=== PATIENT | female | born 1985 | race Caucasian/White ===

== ENCOUNTER 2016-05-01 10:40 | Emergency (ER) | payer SELFPAY ==
[2016-05-01] MEDS ORDERED: IBUPROFEN 800 MG TABLET PO ONE (11:02)
--- NOTE | 2016-05-01 11:02 | ER Document Report ---
ED Medical Screen (RME) - General Stated Complaint: BACK/LEG PAIN Time seen by provider: 11:00 Mode of Arrival: Ambulatory Information source: Patient Notes: 30-year-old female presents to ED for lower back pain in his pain down both legs. States she's had back pain for 2 or 3 days. States she's had leg pain for about a week but she did not have a day off. Last menstrual period 2016 - Related Data Allergies/Adverse Reactions: Sulfa (Sulfonamide Antibiotics) Allergy (Verified 05/01/16 11:00)
--- NOTE | 2016-05-01 11:45 | ER Document Report ---
ED General - General Chief Complaint: Low Back Pain Stated Complaint: BACK/LEG PAIN Time seen by provider: 11:40 Mode of Arrival: Ambulatory Notes: This is a 30-year-old female with a history of anxiety that presents today with lumbar back pain and bilateral leg pain and left arm pain. She states that both her legs started to be painful a week ago, her lumbar back started 5 days ago, and her left arm pain started this morning at 0800. She describes her leg pain as sharp constant 9 out of 10 and worse with walking. Pain travels from the lumbar back behind thighs all the way down to toes bilaterally. She describes back pain is sharp 10 out of 10 worse with any movement. She describes the left arm pain as numbness constant 9 out of 10. Pain starts in the shoulder and radiates to fingertips. Denies nausea vomiting fever chills or any injuries. Only treatment has been Motrin and ibuprofen which helps minimally. Denies bowel or bladder dysfunction. Denies vaginal discharge or odor and dyspareunia. Last menstrual period was 04/25/2016. TRAVEL OUTSIDE OF THE [place] IN LAST 30 DAYS: No - Related Data Allergies/Adverse Reactions: Sulfa (Sulfonamide Antibiotics) Allergy (Verified 05/01/16 11:00) Past Medical History - General Information source: Patient - Social History Smoking Status: Current Every Day Smoker - Smokes half a pack per day for the last 6 years Chew tobacco use (# tins/day): No Frequency of alcohol use: None Drug Abuse: None Family History: Reviewed & Not Pertinent Patient has suicidal ideation: No Patient has homicidal ideation: No Renal/ Medical History: Denies: Hx Peritoneal Dialysis Review of Systems - Review of Systems Constitutional: denies: Chills, Fever EENT: No symptoms reported Cardiovascular: No symptoms reported Respiratory: No symptoms reported Gastrointestinal: No symptoms reported Genitourinary: No symptoms reported. denies: Burning, Dysuria, Discharge Female Genitourinary: Last menstrual period - 04/25/2016 Musculoskeletal: See HPI Skin: No symptoms reported Hematologic/Lymphatic: No symptoms reported Neurological/Psychological: No symptoms reported Physical Exam - Vital signs Vitals: Temp Pulse Resp BP Pulse Ox 97.9 F 73 20 157/86 H 100 05/01/16 11:02 05/01/16 11:02 05/01/16 11:02 05/01/16 11:02 05/01/16 11:02 - General General appearance: Appears well In distress: None - HEENT Head: Normocephalic, Atraumatic Eyes: Normal Conjunctiva: Normal - Respiratory Respiratory status: No respiratory distress. No: Tachypnea Breath sounds: Normal. No: Rales, Rhonchi, Stridor, Wheezing - Cardiovascular Rhythm: Regular Heart sounds: Normal auscultation - Abdominal Bowel sounds: Normal Tenderness: Nontender - Back Back: Tender - Lumbar paraspinal - Extremities General upper extremity: Normal inspection - No swelling of the shoulder or wrist or fingers. +2 radial pulse bilaterally, Nontender, Normal strength, Normal temperature General lower extremity: Normal inspection - No swelling of knees and ankles. + 2 dorsalis pedis bilaterally, Nontender, Normal strength, Normal temperature Shoulder: No: Tender Ankle: Normal, Nontender - Neurological Cognition: Normal. No: Confused - Psychological Associated symptoms: Normal affect, Normal mood - Skin Skin Temperature: Warm Skin Moisture: Dry Skin Color: Normal Course - Re-evaluation Re-evalutation: 05/01/16 12:01 Radiograph images results was shared with the patient. She was given multiple opportunities to ask questions. She was advised to follow-up with primary care physician as soon as possible. - Vital Signs Vital signs: Temp Pulse Resp BP Pulse Ox 97.9 F 73 20 157/86 H 100 05/01/16 11:02 05/01/16 11:02 05/01/16 11:02 05/01/16 11:02 05/01/16 11:02 Discharge - Discharge Clinical Impression: Lumbar back pain Qualifiers: Chronicity: acute Back pain laterality: bilateral Sciatica presence: unspecified whether sciatica present Qualified Code(s): M54.5 - Low back pain Condition: Stable Disposition: HOME, SELF-CARE Instructions: Low Back Pain ([facility]) Additional Instructions: Return to the emergency department if symptoms worsen such as loss of motor function, loss of sensation, fever,etc. follow-up with primary care physician within the next day. Prescriptions: Prednisone [Deltasone 10 mg Tablet] 10 mg PO ASDIR PRN #21 tablet PRN Reason: Referrals: [facility] [Provider Group] - Follow up as needed [facility] [Provider Group] - Follow up as needed
[2016-05-01 14:50] VITALS: BP 157/86
== END 2016-05-01 12:56 | disposition home or self-care (01) ==
LOC: ER 10:40
DX: M54.5 Low back pain (principal); F17.210 Nicotine dependence, cigarettes, uncomplicated; F41.9 Anxiety disorder, unspecified; Z88.2 Allergy status to sulfonamides
CPT/HCPCS: 72110; 99283

== ENCOUNTER 2016-05-01 23:23 | Emergency (ER) | payer SELFPAY ==
[2016-05-02] MEDS ORDERED: KETOROLAC TROMETHAMINE 60 MG/2 ML SDV IM ONE (01:19)
--- NOTE | 2016-05-02 01:32 | ER Document Report ---
ED Neck/Back Problem - General Chief Complaint: Low Back Pain Stated Complaint: BACK PAIN Time seen by provider: 01:30 Mode of Arrival: Ambulatory Information source: Patient TRAVEL OUTSIDE OF THE [place] IN LAST 30 DAYS: No - HPI Patient complains to provider of: Pain, Lower back Onset: Other - 4 days Onset: Gradual Timing: Still present Quality of pain: Achy Severity: Moderate Pain Level: 4 Recent injury: No Associated symptoms: None Exacerbated by: Movement of trunk Relieved by: Nothing Similar symptoms previously: Yes Recently seen / treated by doctor: No Notes: Patient is a 30-year-old female presenting to the emergency room complaining of low back pain that's been going on for the past 4 days, she reports a history of back pain in the past but this is slightly worse than usual, she denies any numbness or tingling in her lower extremities, no bowel or bladder dysfunction, she does have pain shooting down both legs, and states she is unable to find a position of comfort, she recently moved to the area from [place], she was seen in this emergency room earlier in the day and had x-rays performed, has had no recent injury, she is able to ambulate but reports pain with most movements of the trunk - Related Data Allergies/Adverse Reactions: Sulfa (Sulfonamide Antibiotics) Allergy (Verified 05/01/16 11:00) Past Medical History - General Information source: Patient - Social History Smoking Status: Current Every Day Smoker Chew tobacco use (# tins/day): No Frequency of alcohol use: Occasional Drug Abuse: None Family History: Reviewed & Not Pertinent Patient has suicidal ideation: No Patient has homicidal ideation: No Renal/ Medical History: Denies: Hx Peritoneal Dialysis Review of Systems - Review of Systems Constitutional: No symptoms reported EENT: No symptoms reported Cardiovascular: No symptoms reported Respiratory: No symptoms reported Gastrointestinal: No symptoms reported Genitourinary: No symptoms reported Female Genitourinary: No symptoms reported Musculoskeletal: See HPI Skin: No symptoms reported Hematologic/Lymphatic: No symptoms reported Neurological/Psychological: No symptoms reported -: Yes All other systems reviewed and negative Physical Exam - Vital signs Vitals: Temp Pulse Resp BP Pulse Ox 98.0 F 106 H 18 151/86 H 100 05/01/16 23:27 05/01/16 23:27 05/01/16 23:27 05/01/16 23:27 05/01/16 23:27 Interpretation: Tachycardic - General General appearance: Appears well, Alert - HEENT Head: Normocephalic, Atraumatic Eyes: Normal Pupils: PERRL - Respiratory Respiratory status: No respiratory distress Chest status: Nontender Breath sounds: Normal Chest palpation: Normal - Cardiovascular Rhythm: Regular Heart sounds: Normal auscultation Murmur: No - Abdominal Inspection: Normal Distension: No distension Bowel sounds: Normal Tenderness: Nontender Organomegaly: No organomegaly - Back Back: Normal, Tender - Tender to palpate in the lumbar paraspinal musculature, pain with straight leg raise on both sides, distal sensation and motor is intact with 2+ DP pulses - Extremities General upper extremity: Normal inspection, Nontender, Normal color, Normal ROM , Normal temperature General lower extremity: Normal inspection, Nontender, Normal color, Normal ROM , Normal temperature, Normal weight bearing. No: Adeola's sign - Neurological Neuro grossly intact: Yes Cognition: Normal Orientation: AAOx4 Rosemarie Coma Scale Eye Opening: Spontaneous [place] Coma Scale Verbal: Oriented [place]mar[place] Coma Scale Motor: Obeys Commands [place] Coma Scale Total: 15 Speech: Normal Motor strength normal: LUE, RUE, LLE, RLE Sensory: Normal - Psychological Associated symptoms: Normal affect, Normal mood - Skin Skin Temperature: Warm Skin Moisture: Dry Skin Color: Normal Course - Re-evaluation Re-evalutation: 05/02/16 02:46 Patient sleeping comfortably, easily aroused, reports moderate relief of symptoms, and ready to go home, patient will be discharged with prescriptions for symptomatic relief and information follow-up, advised to return if symptoms worsen, patient acknowledges and ending in agreement - Vital Signs Vital signs: Temp Pulse Resp BP Pulse Ox 97.7 F 86 19 166/94 H 100 05/02/16 00:39 05/02/16 00:39 05/02/16 00:39 05/02/16 00:39 05/02/16 00:39 Discharge - Discharge Clinical Impression: Lumbar back pain Qualifiers: Chronicity: acute Back pain laterality: bilateral Sciatica presence: unspecified whether sciatica present Qualified Code(s): M54.5 - Low back pain Condition: Stable Disposition: HOME, SELF-CARE Instructions: Ice Packs ([facility]), Low Back Pain ([facility]), Muscle Strain ([facility]), Oral Narcotic Medication ([facility]), Pain Medication Injection ([facility]), Warm Packs ([facility]), Family Physicians / Practices Additional Instructions: Follow up with your primary care provider in one to 2 days. Return to the emergency room immediately if symptoms worsen or any additional concerns. Prescriptions: Cyclobenzaprine HCl [Flexeril 10 Mg Tablet] 10 mg PO TID #10 tablet Hydrocodone/Acetaminophen [Hydrocodon-Acetaminophen 5-325] 1 each PO Q6 #20 tablet
[2016-05-02] MEDS ORDERED: HYDROCODONE/ACETAMINOPHEN 5-325 MG 6 TAB/DSPK PO PRN (02:47)
[2016-05-02 04:04] VITALS: BP 140/78
== END 2016-05-02 03:00 | disposition home or self-care (01) ==
LOC: ER 23:23
DX: M54.5 Low back pain (principal); F17.210 Nicotine dependence, cigarettes, uncomplicated; Z88.2 Allergy status to sulfonamides
CPT/HCPCS: 99283; 96372; J1885

== ENCOUNTER 2016-05-07 10:54 | Emergency (ER) | payer SELFPAY ==
--- NOTE | 2016-05-07 11:44 | ER Document Report ---
ED Medical Screen (RME) - General Chief Complaint: Toothache Stated Complaint: TOOTH PAIN Mode of Arrival: Ambulatory Information source: Patient Notes: 30 y/o F presents to ED c/o L lower dental pain since yesterday. I have greeted and performed a rapid initial assessment of this patient. A comprehensive ED assessment and evaluation of the patient, analysis of test results and completion of the medical decision making process will be conducted by additional ED providers. TRAVEL OUTSIDE OF THE [place] IN LAST 30 DAYS: No - Related Data Allergies/Adverse Reactions: Sulfa (Sulfonamide Antibiotics) Allergy (Verified 05/07/16 11:35) Past Medical History - Social History Chew tobacco use (# tins/day): No Frequency of alcohol use: None Drug Abuse: None Renal/ Medical History: Denies: Hx Peritoneal Dialysis Physical Exam - Vital signs Vitals: Temp Pulse Resp BP Pulse Ox 98.3 F 88 16 142/93 H 99 05/07/16 11:28 05/07/16 11:28 05/07/16 11:28 05/07/16 11:28 05/07/16 11:28 - General General appearance: Appears well, Alert In distress: None Course - Vital Signs Vital signs: Temp Pulse Resp BP Pulse Ox 98.3 F 88 16 142/93 H 99 05/07/16 11:28 05/07/16 11:28 05/07/16 11:28 05/07/16 11:28 05/07/16 11:28
[2016-05-07] MEDS ORDERED: PENICILLIN V POTASSIUM 500 MG TABLET PO ONE (11:55)
[2016-05-07] MEDS ORDERED: BUPIVACAINE HCL 0.5%-EPI 1:200000 INJ/PF 30 ML VIAL INJ ONE (11:55)
[2016-05-07] MEDS ORDERED: IBUPROFEN 800 MG TABLET PO ONE (11:56)
--- NOTE | 2016-05-07 12:22 | ER Document Report ---
ED General - General Chief Complaint: Toothache Stated Complaint: TOOTH PAIN Mode of Arrival: Ambulatory TRAVEL OUTSIDE OF THE [place] IN LAST 30 DAYS: No - HPI Patient complains to provider of: dentalgia Notes: Patient coming in for tooth pain. Patient having trouble with her #20 tooth. Patient states vomiting or for last 3 days. Patient states has a history of the precarious in the past denies any fever chills nausea vomiting difficulty talking difficulty in swallowing. - Related Data Allergies/Adverse Reactions: Sulfa (Sulfonamide Antibiotics) Allergy (Verified 05/07/16 11:35) Past Medical History - General Information source: Patient - Social History Smoking Status: Former Smoker Chew tobacco use (# tins/day): No Frequency of alcohol use: None Drug Abuse: None Family History: Reviewed & Not Pertinent Patient has suicidal ideation: No Patient has homicidal ideation: No Renal/ Medical History: Denies: Hx Peritoneal Dialysis - Immunizations Hx Diphtheria, Pertussis, Tetanus Vaccination: No Review of Systems - Review of Systems Constitutional: No symptoms reported EENT: Other - Dental pain Cardiovascular: No symptoms reported Respiratory: No symptoms reported Gastrointestinal: No symptoms reported Genitourinary: No symptoms reported Female Genitourinary: No symptoms reported Musculoskeletal: No symptoms reported Skin: No symptoms reported Hematologic/Lymphatic: No symptoms reported Neurological/Psychological: No symptoms reported Physical Exam - Vital signs Vitals: Temp Pulse Resp BP Pulse Ox 98.3 F 88 16 142/93 H 99 05/07/16 11:28 05/07/16 11:28 05/07/16 11:28 05/07/16 11:28 05/07/16 11:28 Interpretation: Normal - General General appearance: Appears well, Alert - HEENT Head: Normocephalic, Atraumatic Eyes: Normal Pupils: PERRL Notes: Patient with very poor dentition missing multiple teeth. Patient does have a large [place] would signs of interval cellulitis tooth #20. No signs of abscess - Respiratory Respiratory status: No respiratory distress Chest status: Nontender Breath sounds: Normal Chest palpation: Normal - Cardiovascular Rhythm: Regular Heart sounds: Normal auscultation Murmur: No - Abdominal Inspection: Normal Distension: No distension Bowel sounds: Normal Tenderness: Nontender Organomegaly: No organomegaly - Back Back: Normal, Nontender - Extremities General upper extremity: Normal inspection, Nontender, Normal color, Normal ROM , Normal temperature General lower extremity: Normal inspection, Nontender, Normal color, Normal ROM , Normal temperature, Normal weight bearing. No: Adeola's sign - Neurological Neuro grossly intact: Yes Cognition: Normal Orientation: AAOx4 Rosemarie Coma Scale Eye Opening: Spontaneous [place] Coma Scale Verbal: Oriented [place] Coma Scale Motor: Obeys Commands [place] Coma Scale Total: 15 Speech: Normal Motor strength normal: LUE, RUE, LLE, RLE Sensory: Normal - Psychological Associated symptoms: Normal affect, Normal mood - Skin Skin Temperature: Warm Skin Moisture: Dry Skin Color: Normal Course - Re-evaluation Re-evalutation: 05/07/16 19:30 Dental block was performed. Patient was given Motrin for pain control. Patient will also be started on Pen-Vee K for the cellulitic process around the tooth. Patient was encouraged follow-up with dentistry - Vital Signs Vital signs: Temp Pulse Resp BP Pulse Ox 98.0 F 85 20 139/94 H 98 05/07/16 12:44 05/07/16 12:44 05/07/16 12:44 05/07/16 12:44 05/07/16 12:44 Procedures - Additional Procedures dental block Notes: 05/07/16 19:30 Patient underwent localized dental block at tooth #20 and still approximate 2 mL of Sensorcaine with epi. Patient tolerated procedure well Discharge - Discharge Clinical Impression: Dentalgia Condition: Good Disposition: HOME, SELF-CARE Instructions: Toothache (PENDING SALE TO [facility]), Penicillin V K (PENDING SALE TO [facility]), [facility] Additional Instructions: Take medications as prescribed. Please follow-up along the dental clinics provided. You may also follow-up with [facility]. Prescriptions: Ibuprofen [Motrin 800 mg Tablet] 800 mg PO Q8H PRN #30 tab PRN Reason: Penicillin V Potassium [Penicillin Vk 500 mg Tablet] 500 mg PO QID 7 Days Forms: Return to Work
[2016-05-07 12:47] VITALS: BP 139/94
== END 2016-05-07 12:43 | disposition home or self-care (01) ==
LOC: ER 10:54
PROC: 3E0T3BZ Introduction of Anesthetic Agent into Peripheral Nerves and Plexi, Percutaneous Approach (ICD-10-PCS; principal; 2016-05-07)
DX: L03.818 Cellulitis of other sites (principal); K08.89 Other specified disorders of teeth and supporting structures; Z88.2 Allergy status to sulfonamides; Z87.891 Personal history of nicotine dependence
CPT/HCPCS: 99282; 64400; J3490

== ENCOUNTER 2016-05-10 09:28 | Emergency (ER) | payer SELFPAY ==
[2016-05-10] MEDS ORDERED: MORPHINE SULFATE 10 MG/ML INJ IV ONE ×2 (10:19→11:42)
[2016-05-10] MEDS ORDERED: CLINDAMYCIN 600 MG/D5W RTU 50 ML IV ONE (10:19)
[2016-05-10 11:07] LABS: ABSOLUTE BASOPHILS # (AUTO) 0.1 10^3/uL (0.0-0.2); ABSOLUTE EOSINOPHILS # (AUTO) 0.2 10^3/uL (0.0-0.6); ABSOLUTE LYMPHOCYTES (AUTO) 1.4 10^3/uL (0.5-4.7); ABSOLUTE MONOCYTES (AUTO) 0.6 10^3/uL (0.1-1.4); ABSOLUTE NEUT (AUTO) 7.2 10^3/uL (1.7-8.2); BASOPHILS % (AUTO) 0.7 % (0-2); EOSINOPHILS % (AUTO) 1.8 % (0-6); HEMATOCRIT 36.4 % (36.0-47.0); HEMOGLOBIN 11.6 g/dL (12.0-15.5); HGB HCT DIFFERENCE -1.6; LYMPHOCYTES % (AUTO) 15.1 % (13-45); MEAN CORPUSCULAR HEMOGLOBIN 26.1 pg (27.0-33.4); MEAN CORPUSCULAR VOLUME 82 fl (80-97); MONOCYTES % (AUTO) 6.6 % (3-13); RED BLOOD COUNT 4.46 10^6/uL (3.72-5.28); SEGMENTED NEUTROPHILS % (AUTO) 75.8 % (42-78); WHITE BLOOD COUNT 9.6 10^3/uL (4.0-10.5)
--- NOTE | 2016-05-10 11:11 | ER Document Report ---
ED Oral Problem - General Chief Complaint: Toothache Stated Complaint: TOOTH PAIN Information source: Patient Notes: 30-year-old female who presents today with the onset around 2 days ago of some left lower tooth pain. She states she was seen and evaluated here and started on penicillin as well as Motrin. She states she did have some vomiting with the last episode being last night. She now feels some anterior neck pain. She denies any difficulty breathing or swallowing. She denies any fevers. She denies any neck stiffness or posterior neck pain or swelling. TRAVEL OUTSIDE OF THE [place] IN LAST 30 DAYS: No - HPI Patient complains to provider of: Toothache, Other - Pain to the anterior neck Onset: Other - See above Onset: Gradual Quality of pain: Achy Severity: Moderate Pain Level: 1 Associated symptoms: Other - See above Similar symptoms previously: No Recently seen / treated by doctor/dentist: Yes - Related Data Allergies/Adverse Reactions: Sulfa (Sulfonamide Antibiotics) Allergy (Verified 05/10/16 09:34) Past Medical History - Social History Smoking Status: Current Every Day Smoker Chew tobacco use (# tins/day): No Frequency of alcohol use: None Drug Abuse: None Family History: Reviewed & Not Pertinent Patient has suicidal ideation: No Patient has homicidal ideation: No Renal/ Medical History: Denies: Hx Peritoneal Dialysis - Immunizations Hx Diphtheria, Pertussis, Tetanus Vaccination: No Review of Systems - Review of Systems Constitutional: denies: Fever EENT: denies: Eye discharge, Nose discharge, Sinus discharge, Throat pain, Mouth swelling Respiratory: denies: Cough, Short of breath Gastrointestinal: Vomiting Skin: No symptoms reported, Other - no hives. denies: Rash Neurological/Psychological: Other - no slurred speech -: Yes All other systems reviewed and negative Physical Exam - Vital signs Vitals: Temp Pulse Resp BP Pulse Ox 99.1 F 106 H 20 146/89 H 98 05/10/16 09:33 05/10/16 09:33 05/10/16 09:33 05/10/16 09:33 05/10/16 09:33 Notes: Reviewed vital signs and nursing note as charted by RN. CONSTITUTIONAL: Alert and oriented and responds appropriately to questions. Well -appearing; well-nourished HEAD: Normocephalic; atraumatic EYES: PERRL; Conjunctivae clear, sclerae non-icteric ENT: Normal nose; no rhinorrhea; appears to have obvious dentition with decay to the left lower anterior teeth. No obvious fluctuance or induration noted.; pharynx with no obvious peritonsillar swelling or exudate noted. Midline uvula. NECK: Supple; patient does have some tenderness and anterior neck fullness with no obvious induration, erythema, or obvious fluctuance. It is very tender to palpation. It is just the upper anterior midline neck. No swelling underneath the angles of the mandible bilaterally. No mastoid swelling or tenderness. CARD: Regular rate and rhythm; no murmurs, no clicks, no rubs, no gallops; symmetric distal pulses RESP: Normal chest excursion without splinting or tachypnea; breath sounds clear and equal bilaterally; no wheezes, no rhonchi, no rales EXT: Normal ROM in all joints; non-tender to palpation; no cyanosis, no effusions, no edema SKIN: Normal color for age and race; warm; dry; good turgor; capillary refill < 2 seconds; no acute lesions noted NEURO: Moves all extremities equally; Motor and sensory function intact PSYCH: The patient's mood and manner are appropriate. Grooming and personal hygiene are appropriate. Course - Re-evaluation Re-evalutation: 05/10/16 11:10 Given the history and physical examination, I will obtain a soft tissue contrast CT scan of the anterior neck. I have also provided IV antibiotics. 05/10/16 13:[address] scan as recorded. Patient's pain is improved. Patient will be discharged home with clindamycin, nausea medications, dental referral, and strict return precautions. - Vital Signs Vital signs: Temp Pulse Resp BP Pulse Ox 99.1 F 106 H 16 146/89 H 98 05/10/16 09:33 05/10/16 09:33 05/10/16 10:00 05/10/16 09:33 05/10/16 09:33 - Laboratory Result Diagrams: 05/10/16 10:42 05/10/16 10:42 Laboratory results interpreted by me: 05/10/16 05/10/16 10:42 10:42 Hgb 11.6 L MCH 26.1 L RDW 18.0 H Creatinine 0.50 L Glucose 208 H Discharge - Discharge Clinical Impression: Dental abscess, Anterior cervical lymphadenopathy Condition: Good Disposition: HOME, SELF-CARE Additional Instructions: Come back immediately for any increased neck pain, swelling, fevers, vomiting, or any other acute problems. Please follow-up with dentistry as we have discussed. Please take the antibiotics using the discount prescription coupon that I provided as well as pain medications as needed. Prescriptions: Clindamycin HCl [Cleocin 300 mg Capsule] 300 mg PO QID #40 capsule Oxycodone HCl/Acetaminophen [Percocet 5-325 mg Tablet] 1 - 2 tab PO ASDIR PRN # 15 tablet PRN Reason:
[2016-05-10 11:28] LABS: ANION GAP 10 (5-19); BLOOD UREA NITROGEN 13 mg/dL (7-20); CALCIUM 9.3 mg/dL (8.4-10.2); CARBON DIOXIDE 28 mmol/L (22-30); CHLORIDE 103 mmol/L (98-107); GLUCOSE 208 mg/dL (75-110); POTASSIUM 3.7 mmol/L (3.6-5.0); SODIUM 140.6 mmol/L (137-145)
[2016-05-10 13:35] VITALS: BP 142/80
== END 2016-05-10 13:36 | disposition home or self-care (01) ==
LOC: ER 09:28
DX: K04.7 Periapical abscess without sinus (principal); R59.0 Localized enlarged lymph nodes; K08.9 Disorder of teeth and supporting structures, unspecified; R11.10 Vomiting, unspecified; F17.200 Nicotine dependence, unspecified, uncomplicated; Z88.2 Allergy status to sulfonamides
CPT/HCPCS: 96376; 99284; 96375; 96365; 36415; 87040; 85025; 80048; 70491; J2270

== ENCOUNTER 2016-05-12 19:44 | Emergency (ER) | payer SELFPAY ==
[~2016-05-12 19:44] MED LIST: ROCURONIUM BROMIDE INJ 50 MG/5 ML VIAL IV ONE; SUCCINYLCHOLINE CHLORIDE INJ 200 MG/10 ML VIAL ONE
--- NOTE | 2016-05-12 19:54 | ER Document Report ---
ED Medical Screen (RME) - General Stated Complaint: TONGUE/THROAT SWELLING Mode of Arrival: Ambulatory Information source: Patient Notes: Patient complains of dental pain to lower jaw for the past 3 days. Patient with swelling for the past 3 days that has gradually started to worsen. Patient with submental and sublingual swelling concerning for titi angina. Patient with redness overlying skin of the chin area. Patient is taking clindamycin at present. hx: Kidney stones I have greeted and performed a rapid initial assessment of this patient. A comprehensive ED assessment and evaluation of the patient, analysis of test results and completion of the medical decision making process will be conducted by additional ED providers. TRAVEL OUTSIDE OF THE [place] IN LAST 30 DAYS: No - Related Data Allergies/Adverse Reactions: Sulfa (Sulfonamide Antibiotics) Allergy (Verified 05/10/16 09:34) Past Medical History Renal/ Medical History: Denies: Hx Peritoneal Dialysis - Immunizations Hx Diphtheria, Pertussis, Tetanus Vaccination: No Physical Exam - Vital signs Vitals: Temp Pulse Resp BP Pulse Ox 98.0 F 117 H 18 180/113 H 98 05/12/16 19:49 05/12/16 19:49 05/12/16 19:49 05/12/16 19:49 05/12/16 19:49 - General Notes: Patient with titi angina Course - Vital Signs Vital signs: Temp Pulse Resp BP Pulse Ox 98.0 F 117 H 18 180/113 H 98 05/12/16 19:49 05/12/16 19:49 05/12/16 19:49 05/12/16 19:49 05/12/16 19:49
[2016-05-12] MEDS ORDERED: METHYLPREDNISOLONE INJ 125 MG/2 ML SDV ONE (20:05)
--- NOTE | 2016-05-12 20:09 | ER Document Report ---
ED Oral Problem <CASSANDRA CHAPARRO - Last Filed: 05/12/16 22:38> - General Mode of Arrival: Ambulatory Information source: Patient TRAVEL OUTSIDE OF THE [place] IN LAST 30 DAYS: No - HPI Patient complains to provider of: Jaw pain, Swelling of jaw, Toothache - Left lower molar Onset: Other - 2 days ago Associated symptoms: Other - see above <NAOMI LAWRENCE - Last Filed: 05/12/16 22:40> - General Chief Complaint: Jaw Pain Stated Complaint: TONGUE/THROAT SWELLING Notes: 30-year-old female presents to the ED complaining of left lower molar tooth pain that began 2 days ago. Patient states that she was seen in the ED 2 days ago for the tooth pain and was given clindamycin. She has been taking the clindamycin as directed. This morning she woke up with difficulty talking and swallowing. Patient states that yesterday she was perfectly fine. Patient also notes that she has prominent submandibular and facial swelling. Patient states that she last ate and drank this morning. Patient denies any past surgeries and states that she is not . (NAOMI LAWRENCE) - Related Data Allergies/Adverse Reactions: Sulfa (Sulfonamide Antibiotics) Allergy (Verified 05/10/16 09:34) Past Medical History - General Information source: Patient - Social History Smoking Status: Unknown if Ever Smoked Family History: Reviewed & Not Pertinent Patient has suicidal ideation: No Patient has homicidal ideation: No - Medical History Medical History: Negative Renal/ Medical History: Denies: Hx Peritoneal Dialysis Surgical Hx: Negative - Immunizations Hx Diphtheria, Pertussis, Tetanus Vaccination: No <NAOMI LAWRENCE - Last Filed: 05/12/16 22:40> Review of Systems - Review of Systems Constitutional: No symptoms reported EENT: See HPI, Difficulty swallowing, Mouth swelling, Dental problem - left lower molar pain, Other - Submandibular and facial swelling resulting in difficulty speaking Cardiovascular: No symptoms reported Respiratory: No symptoms reported Gastrointestinal: No symptoms reported Genitourinary: No symptoms reported Female Genitourinary: No symptoms reported Musculoskeletal: No symptoms reported Skin: No symptoms reported Hematologic/Lymphatic: No symptoms reported Neurological/Psychological: No symptoms reported -: Yes All other systems reviewed and negative <NAOMI LAWRENCE - Last Filed: 05/12/16 22:40> Physical Exam - General General appearance: Alert In distress: None - HEENT Head: Other - Significant submandibular swelling.. No: Normocephalic Eyes: Normal Extraocular movements intact: Yes Pupils: PERRL Mouth/Lips: Other - Patient is only able to open her mouth 1 finger width wide. Patient's tongue is elevated.. No: Normal Neck: Other - Trismus. - Respiratory Respiratory status: No respiratory distress Breath sounds: Normal. No: Stridor - Cardiovascular Rhythm: Regular Heart sounds: Normal auscultation - Abdominal Inspection: Normal - Back Back: Normal - Extremities General upper extremity: Normal inspection, Normal ROM General lower extremity: Normal inspection, Normal ROM - Neurological Neuro grossly intact: Yes Cognition: Normal Orientation: AAOx4 [place] Coma Scale Eye Opening: Spontaneous [place] Coma Scale Verbal: Oriented [place] Coma Scale Motor: Obeys Commands [place] Coma Scale Total: 15 Speech: Normal - Psychological Associated symptoms: Normal affect, Normal mood - Skin Skin Temperature: Warm Skin Moisture: Dry Skin Color: Normal <NAOMI LAWRENCE - Last Filed: 05/12/16 22:40> - Vital signs Vitals: Temp Pulse Resp BP Pulse Ox 98.0 F 117 H 18 180/113 H 98 05/12/16 19:49 05/12/16 19:49 05/12/16 19:49 05/12/16 19:49 05/12/16 19:49 (CASSANDRA CHAPARRO) Course - Laboratory Result Diagrams: 05/12/16 20:11 05/12/16 20:11 <CASSANDRA CHAPARRO - Last Filed: 05/12/16 22:38> - Laboratory Result Diagrams: 05/12/16 20:11 05/12/16 20:11 - Consults [facility] Time consulted: 21:20 [facility] Time consulted: 21:42 Dr. Tilley Time consulted: 22:30 <NAOMI LAWRENCE - Last Filed: 05/12/16 22:40> - Re-evaluation Re-evalutation: 05/12/16 21:12 I personally performed the services described in the documentation, reviewed and edited the documentation which was dictated to my scribe in my presence, and it accurately records my words and actions. presents the emergency department with left lower jaw pain neck pain ear pain and headache having trouble swallowing or talking recently seen and evaluated for odontalgia placed on clindamycin. Said this morning she started having increasing difficulty breathing swallowing felt like her airway was closing off. She noticed swelling up underneath her tongue and a the lower part of her jaw. She states she has been taking the clindamycin. She denies any respiratory illness or other medications. On physical examination she has trismus no stridor significant submandibular swelling and tongue elevation. She can open her mouth about 1 finger breath. He was immediately consulted assessed and concerns for controlling her airway. Anesthesia was contacted they did intubate the patient with the glide scope. She had a very beefy red swollen with minimal cord visible was successfully intubated and IV antibiotics and contacted [facility] for transfer 24/04/10 pending phone call back no ear nose and throat doctor on-call. 05/12/16 21:[address] blackwell [facility] no icu beds available contacted [facility] 21:30 05/12/16 22:13 contacted [facility] 22:14 05/12/16 22:38 [facility] accepted the patient Dr. tilley at 22:30 (CASSANDRA CHAPARRO) - Vital Signs Vital signs: Temp Pulse Resp BP Pulse Ox 98.0 F 117 H 12 125/78 95 05/12/16 19:49 05/12/16 19:49 05/12/16 22:34 05/12/16 22:34 05/12/16 22:34 (CASSANDRA CHAPARRO) (NAOMI LAWRENCE) - Laboratory Laboratory results interpreted by nd: 05/12/16 05/12/16 20:11 20:11 WBC 11.0 H Hgb 11.6 L Hct 35.5 L MCV 79 L MCH 25.9 L RDW 18.2 H Seg Neutrophils % 79.6 H Lymphocytes % 12.0 L Absolute Neutrophils 8.7 H Creatinine 0.46 L Glucose 239 H Alkaline Phosphatase 128 H (CASSANDRA CHAPARRO) - Consults [facility] Reason for consultation: 05/12/16 21:20 [facility] transfer center was called and was informed that there are no ICU beds available. (NAOMI LAWRENCE) [facility] Reason for consultation: 05/12/16 21:42 [facility] transfer center was called and was informed that no ICU beds are available. (NOAMI LAWRENCE) Dr. Tilley Reason for consultation: 05/12/16 22:40 [facility] accepted the patient Dr. Tilley at 22:30 (NAOMI LAWRENCE) Discharge <CASSANDRA CHAPARRO - Last Filed: 05/12/16 22:38> <NAOMI LAWRENCE - Last Filed: 05/12/16 22:40> - Discharge Clinical Impression: Ludwigs angina Condition: Stable Disposition: [facility] Scribe Documentation - Scribe Written by Teresaibe:: Kiley Weber, 05/12/20162100 acting as scribe for :: Mitul <NAOMI LAWRENCE - Last Filed: 05/12/16 22:40>
[2016-05-12] MEDS ORDERED: PROPOFOL 100 ML IV ONE ×2 (20:16→21:47)
[2016-05-12 20:31] LABS: ABSOLUTE BASOPHILS # (AUTO) 0.1 10^3/uL (0.0-0.2); ABSOLUTE EOSINOPHILS # (AUTO) 0.2 10^3/uL (0.0-0.6); ABSOLUTE LYMPHOCYTES (AUTO) 1.3 10^3/uL (0.5-4.7); ABSOLUTE MONOCYTES (AUTO) 0.7 10^3/uL (0.1-1.4); ABSOLUTE NEUT (AUTO) 8.7 10^3/uL (1.7-8.2); BASOPHILS % (AUTO) 0.5 % (0-2); EOSINOPHILS % (AUTO) 1.5 % (0-6); HEMATOCRIT 35.5 % (36.0-47.0); HEMOGLOBIN 11.6 g/dL (12.0-15.5); HGB HCT DIFFERENCE -0.7; MEAN CORPUSCULAR HEMOGLOBIN 25.9 pg (27.0-33.4); MEAN CORPUSCULAR HGB CONC 32.6 g/dL (32.0-36.0); MEAN CORPUSCULAR VOLUME 79 fl (80-97); MONOCYTES % (AUTO) 6.4 % (3-13); RED BLOOD COUNT 4.48 10^6/uL (3.72-5.28); RED CELL DISTRIBUTION WIDTH 18.2 % (11.5-14.0); SEGMENTED NEUTROPHILS % (AUTO) 79.6 % (42-78)
[2016-05-12] MEDS ORDERED: PROPOFOL INJ 200 MG/20 ML VIAL IV ONE (20:36)
[2016-05-12 20:46] LABS: ALANINE AMINOTRANSFERASE 25 U/L (9-52); ALBUMIN 4.1 g/dL (3.5-5.0); ALKALINE PHOSPHATASE 128 U/L (38-126); ANION GAP 12 (5-19); ASPARTATE AMINO TRANSFERASE 15 U/L (14-36); BILIRUBIN,TOTAL 0.4 mg/dL (0.2-1.3); BLOOD UREA NITROGEN 12 mg/dL (7-20); CALCIUM 9.6 mg/dL (8.4-10.2); CARBON DIOXIDE 26 mmol/L (22-30); CHLORIDE 102 mmol/L (98-107); CREATININE RESULT 0.46 mg/dL (0.52-1.25); GLUCOSE 239 mg/dL (75-110); POTASSIUM 4.2 mmol/L (3.6-5.0); SODIUM 139.8 mmol/L (137-145)
[2016-05-12] MEDS ORDERED: FENTANYL CITRATE INJ/PF 100 MCG/2 ML AMPUL ONE (20:53)
[2016-05-12] MEDS ORDERED: VECURONIUM BROMIDE INJ 10 MG VIAL IV ONE ×3 (20:59→23:13)
[2016-05-12] MEDS ORDERED: AMPICILLIN SOD/SULBACTAM 3 GM VIAL IV ONE (21:14)
[2016-05-12] MEDS ORDERED: MIDAZOLAM 2 MG/2 ML INJ ONE (22:08)
[2016-05-12] MEDS ORDERED: MIDAZOLAM 2 MG/2 ML INJ IV ONE (23:14)
[2016-05-12] MEDS ORDERED: METHYLPREDNISOLONE INJ 125 MG/2 ML SDV IV ONE (23:14)
[2016-05-12] MEDS ORDERED: FENTANYL CITRATE INJ/PF 100 MCG/2 ML AMPUL IV ONE (23:16)
[2016-05-12] MEDS ORDERED: NORMAL SALINE 100 ML with VECURONIUM BROMIDE 10 MG IV PRN ×2 (23:16)
[2016-05-12] MEDS: PROPOFOL 100 ML IV PRN (23:50)
[2016-05-13] MEDS ORDERED: KETAMINE HCL INJ 500 MG/10 ML VIAL IV ONE (00:49)
[2016-05-13] MEDS ORDERED: KETAMINE HCL INJ 500 MG/10 ML VIAL ONE (00:50)
[2016-05-13] MEDS: PROPOFOL 100 ML IV PRN ×7 (01:10→13:05)
--- NOTE | 2016-05-13 04:07 | ER Document Report ---
Doctor's Note Notes: 05/13/16 0:56 Notified by nursing staff that patient is awake and fighting the vent slightly, she is currently maxed out on a propofol drip, therefore a ketamine drip has been ordered 05/13/16 04:07 Patient has been resting comfortably with stable vital signs and no concerns, breath sounds are equal bilaterally, she remains intubated awaiting transfer to tertiary care center for further evaluation and treatment 05/13/16 05:31 Patient continues to rest comfortably with stable vital signs, no concerns at present time 05/13/16 06:50 Patient remains stable, resting comfortably, both propofol and ketamine drip are infusing, vital signs have been stable, patient remains intubated, awaiting transfer to tertiary care [facility], patient has been discussed with Dr Frausto who will continue to monitor patient until transfer is made
[2016-05-13] MEDS ORDERED: AMPICILLIN SOD/SULBACTAM 3 GM VIAL IV SCH (07:00)
--- NOTE | 2016-05-13 13:31 | ER Document Report ---
Doctor's Note Notes: 05/13/16 13:30 The patient's ER stay throughout the day and been uneventful. Her vital signs are stable at this time. She still remains sedated on the ventilator receiving every 6 Unasyn antibiotic IV. The helicopter is landing at this time to take her to [facility].
[2016-05-13 14:10] VITALS: BP 105/65
== END 2016-05-13 14:10 | disposition short-term general hospital (02) ==
LOC: ER 19:44
DX: K12.2 Cellulitis and abscess of mouth (principal); R68.84 Jaw pain; R22.0 Localized swelling, mass and lump, head
CPT/HCPCS: 99285; 51702; 96375; 96365; 36415; 87040; 84703; 85025; 80053; 71010; 74000; 70491; 94003; J2250; J3490 ×3; J3010; J0295; J2704 ×3; J2930; J0330; 31500

== ENCOUNTER 2016-10-01 17:17 | Emergency (ER) | payer SELFPAY ==
--- NOTE | 2016-10-01 18:10 | RADIOLOGY REPORT (SQ) ---
EXAM DESCRIPTION: CHEST PA/LAT COMPLETED DATE/TIME: 10/01/2016 5:59 pm REASON FOR STUDY: cough COMPARISON: None. EXAM PARAMETERS: NUMBER OF VIEWS: two views TECHNIQUE: Digital Frontal and Lateral radiographic views of the chest acquired. RADIATION DOSE: NA LIMITATIONS: none FINDINGS: LUNGS AND PLEURA: No opacities, masses or pneumothorax. No pleural effusion. MEDIASTINUM AND HILAR STRUCTURES: No masses or contour abnormalities. HEART AND VASCULAR STRUCTURES: Heart normal size. No evidence for failure. BONES: No acute findings. HARDWARE: None in the chest. OTHER: No other significant finding. IMPRESSION: NO SIGNIFICANT RADIOGRAPHIC FINDING IN THE CHEST. TECHNICAL DOCUMENTATION: JOB ID: [id number] [employer]- All Rights Reserved
[2016-10-01 18:20] LABS: APPEARANCE,URINE SLIGHTLY-CLOUDY; BILIRUBIN,URINE NEGATIVE (NEGATIVE); GLUCOSE, URINE >=500 mg/dL (NEGATIVE); KETONES,URINE TRACE mg/dL (NEGATIVE); LEUKOCYTE ESTERASE,URINE NEGATIVE (NEGATIVE); NITRITE,URINE NEGATIVE (NEGATIVE); PROTEIN,URINE NEGATIVE (NEGATIVE); URINE SPECIFIC GRAVITY 1.014; UROBILINOGEN,URINE NEGATIVE mg/dL (<2.0)
--- NOTE | 2016-10-01 18:20 | ER Document Report ---
ED Cardiac - General Chief Complaint: Chest Pain Stated Complaint: RIGHT ARM PAIN/CHEST PAIN Time Seen by Provider: 10/01/16 17:39 Notes: The patient is a 30-year-old female, past medical history kidney stones, presents with 1 day of right upper neck pain and spasming, right-sided chest pain, arm pain and leg pain. She said that the pain started in her shoulder and has spread to her chest and right arm earlier today. She is feeling worsening pain when she moves her right shoulder. She denies shortness of breath, leg swelling, nausea, vomiting, fevers, cough, neck pain or urinary symptoms. TRAVEL OUTSIDE OF THE [place] IN LAST 30 DAYS: No - Related Data Allergies/Adverse Reactions: Sulfa (Sulfonamide Antibiotics) Allergy (Verified 10/01/16 17:24) Past Medical History - General Information source: Patient - Social History Smoking Status: Current Every Day Smoker Frequency of alcohol use: Social Drug Abuse: None Family History: Reviewed & Not Pertinent Patient has suicidal ideation: No Patient has homicidal ideation: No Renal/ Medical History: Reports: Hx Kidney Stones. Denies: Hx Peritoneal Dialysis Past Surgical History: Reports: Hx Section, Hx Tubal Ligation - Immunizations Hx Diphtheria, Pertussis, Tetanus Vaccination: No Review of Systems - Review of Systems Notes: REVIEW OF SYSTEMS: CONSTITUTIONAL: -fevers, -chills EENT: -eye pain, -difficulty swallowing, -nasal congestion CARDIOVASCULAR: +chest pain, -syncope. RESPIRATORY: -cough, -SOB GASTROINTESTINAL: -abdominal pain, - nausea, -vomiting, -diarrhea GENITOURINARY: -dysuria, -hematuria MUSCULOSKELETAL: +right shoulder, arm and leg pain, -back pain, -neck pain SKIN: -rash or skin lesions. HEMATOLOGIC: -easy bruising or bleeding. LYMPHATIC: -swollen, enlarged glands. NEUROLOGICAL: -altered mental status or loss of consciousness, -headache, - neurologic symptoms PSYCHIATRIC: -anxiety, -depression. ALL OTHER SYSTEMS REVIEWED AND NEGATIVE. Physical Exam - Vital signs Vitals: Temp Pulse Resp BP Pulse Ox 98 F 109 H 24 H 168/116 H 100 10/01/16 17:25 10/01/16 17:25 10/01/16 17:25 10/01/16 17:25 10/01/16 17:25 - Notes Notes: PHYSICAL EXAMINATION: GENERAL: Anxious. Well-appearing HEAD: Atraumatic, normocephalic. EYES: Pupils equal round and reactive to light, extraocular movements intact, sclera anicteric, conjunctiva are normal. ENT: nares patent, oropharynx clear without exudates. Moist mucous membranes. NECK: Normal range of motion, supple without lymphadenopathy LUNGS: Breath sounds clear to auscultation bilaterally and equal. No wheezes rales or rhonchi. HEART: Tachycardic. Regular rhythm ABDOMEN: Soft, nontender, normoactive bowel sounds. No guarding, no rebound. No masses appreciated. EXTREMITIES: Strong distal pulses. Spasming of right upper trapezius. 5/5 strength in all 4 extremities. NEUROLOGICAL: Cranial nerves grossly intact. Normal speech, normal gait. Normal sensory and motor exams. PSYCH: Anxious. Tearful. SKIN: Warm, Dry, normal turgor, no rashes or lesions noted. Course - Re-evaluation Re-evalutation: The patient appears well. She has strong distal pulses. Spasming of right upper trapezius and right paraspinal muscles may be causing some of her symptoms. Her EKG, blood work and urine are all unremarkable, including negative d-dimer to rule-out PE and aortic dissection. Told patient that she has an elevated blood glucose level and have this rechecked by her primary care physician. Will try her on muscle relaxers, anti-inflammatories and given strict return precautions. - Vital Signs Vital signs: Temp Pulse Resp BP Pulse Ox 98 F 109 H 24 H 168/116 H 100 10/01/16 17:25 10/01/16 17:25 10/01/16 17:25 10/01/16 17:25 10/01/16 17:25 - Laboratory Result Diagrams: 10/01/16 17:45 10/01/16 17:45 Laboratory results interpreted by me: 10/01/16 10/01/16 10/01/16 17:45 17:45 17:45 Hgb 11.5 L MCV 76 L MCH 23.7 L MCHC 31.0 L RDW 19.6 H Glucose 246 H Urine Glucose (UA) >=500 H Urine Ketones TRACE H - Diagnostic Test Radiology reviewed: Image reviewed, Reports reviewed Radiology results interpreted by me: CXR: NAD - EKG Interpretation by [facility] EKG shows normal: Sinus rhythm, [place], Intervals, QRS Complexes, ST-T Waves Rate: Tachycardia Discharge - Discharge Clinical Impression: Muscle spasms of neck Chest pain Qualifiers: Chest pain type: unspecified Qualified Code(s): R07.9 - Chest pain, unspecified Condition: Stable Disposition: HOME, SELF-CARE Additional Instructions: Have your blood sugar rechecked by your primary care physician because it was elevated today. Take Motrin or Naprosyn and Flexeril for any spasms. Myalagia (Muscle Pain) Myalgia is pain in the muscles. We use the word myalgia to describe muscle pain where there's no history of injury, no known muscle disease, and the muscles are normal to examination. Myalgias can be a symptom of an acute illness , such as influenza, hepatitis, or any viral illness, especially with fever. Sometimes the muscle pain comes before any other symptoms. Myalgia can also be an early symptom of inflammatory muscle disease, such as lupus. If myalgia is accompanied by an acute illness that explains the muscle pain , then no further testing needs to be done. When there's no clear reason for the pain, tests may be done to see if there's an inflammatory or other disease of the muscles. The usual treatment for myalgias is anti-inflammatory medication, such as ibuprofen. Muscle aches may be soothed with a heating pad or hot compress. If muscles remain painful for more than a few days, you'll need testing and followup. Return if a muscle becomes swollen, red, or severely painful. CHEST PAIN OF UNCLEAR CAUSE: The exact cause of your chest pain isn't clear. Fortunately, there is no evidence of a dangerous medical condition. Further testing may be required to find the source of the pain. Most often, we find that this pain is coming from the chest wall -- the muscles or rib joints in the chest. But chest pain can come from the lung and lung lining, the esophagus, the heart valves or heart lining, and even the stomach or gallbladder. Rest. Eat lightly until the pain is gone. We may prescribe medicine for pain and inflammation. You should call the physician immediately if the pain radiates to the shoulder, jaw or arms; if you start to run a fever or develop a cough; or if you develop shortness of breath, or other new or alarming symptoms. NORMAL EXAM AND WORKUP: At this time, your examination and workup show no significant abnormality. No significant abnormal physical findings were noted. All laboratory, EKG, and imaging (x-ray, CT scans, ultrasound) studies that were ordered show no significant abnormality. Although your examination and all studies that were ordered showed no significant abnormal finding, there are no examinations and no studies that are 100% accurate. There is always the possibility that some abnormality could exist and not be detected with physical examination or within the limits and capabilities of laboratory and other studies. You should return or follow up as you were instructed on your visit today for further evaluation if your symptoms do not resolve. CHEST WALL PAIN: Your chest pain may be coming from the chest wall. This is often caused by straining the muscles or joints in the chest during physical activity, direct trauma, coughing, or vigorous vomiting. Persons with arthritis are especially prone to this type of pain, due to inflammation of the cartilage joints near the breast bone. Occasionally, no cause can be found. Rest from strenuous physical activity. This kind of chest pain is usually made worse by movement of the chest. Depending on the symptoms, we may prescribe medicine for pain, muscle relaxation, and antiinflammatory effects. If the pain is new, and seems to be due to muscle strain, cold packs can help. Otherwise, apply gentle warmth to the painful area for 15 minutes every hour or two. You should call contact the doctor immediately if things change. Further evaluation is needed if you develop a fever or cough, if the nature of the pain changes, or if you become short of breath. FOLLOW-UP CARE: If you have been referred to a physician for follow-up care, call the physician s office for an appointment as you were instructed or within the next two days. If you experience worsening or a significant change in your symptoms, notify the physician immediately or return to the Emergency Department at any time for re-evaluation. Prescriptions: Cyclobenzaprine HCl [Flexeril 10 mg Tablet] 10 mg PO TIDP PRN #15 tab PRN Reason: Referrals: [facility] [Outside] - Follow up as needed
[2016-10-01 18:24] LABS: ABSOLUTE BASOPHILS # (AUTO) 0.1 10^3/uL (0.0-0.2); ABSOLUTE EOSINOPHILS # (AUTO) 0.2 10^3/uL (0.0-0.6); ABSOLUTE LYMPHOCYTES (AUTO) 1.5 10^3/uL (0.5-4.7); ABSOLUTE MONOCYTES (AUTO) 0.4 10^3/uL (0.1-1.4); ABSOLUTE NEUT (AUTO) 5.1 10^3/uL (1.7-8.2); BASOPHILS % (AUTO) 1.3 % (0-2); EOSINOPHILS % (AUTO) 2.7 % (0-6); HEMATOCRIT 37.2 % (36.0-47.0); HEMOGLOBIN 11.5 g/dL (12.0-15.5); HGB HCT DIFFERENCE -2.7; LYMPHOCYTES % (AUTO) 20.9 % (13-45); MEAN CORPUSCULAR HEMOGLOBIN 23.7 pg (27.0-33.4); MEAN CORPUSCULAR VOLUME 76 fl (80-97); MONOCYTES % (AUTO) 5.5 % (3-13); RED BLOOD COUNT 4.86 10^6/uL (3.72-5.28); RED CELL DISTRIBUTION WIDTH 19.6 % (11.5-14.0); SEGMENTED NEUTROPHILS % (AUTO) 69.6 % (42-78); WHITE BLOOD COUNT 7.4 10^3/uL (4.0-10.5)
[2016-10-01] MEDS ORDERED: HYDROCODONE/ACETAMINOPHEN 5-325 MG TABLET PO ONE (18:27)
[2016-10-01] MEDS ORDERED: NAPROXEN 250 MG TABLET PO ONE (18:27)
[2016-10-01 18:29] LABS: ALANINE AMINOTRANSFERASE 27 U/L (9-52); ALBUMIN 4.5 g/dL (3.5-5.0); ALKALINE PHOSPHATASE 114 U/L (38-126); ANION GAP 13 (5-19); ASPARTATE AMINO TRANSFERASE 17 U/L (14-36); BILIRUBIN,DIRECT 0.3 mg/dL (0.0-0.4); BILIRUBIN,TOTAL 0.5 mg/dL (0.2-1.3); BLOOD UREA NITROGEN 15 mg/dL (7-20); CALCIUM 9.9 mg/dL (8.4-10.2); CARBON DIOXIDE 22 mmol/L (22-30); CHLORIDE 105 mmol/L (98-107); CREATINE KINASE 44 U/L (30-135); CREATININE RESULT 0.59 mg/dL (0.52-1.25); GLUCOSE 246 mg/dL (75-110); MAGNESIUM 1.9 mg/dL (1.6-2.3); POTASSIUM 4.4 mmol/L (3.6-5.0); SODIUM 139.6 mmol/L (137-145); TOTAL PROTEIN 7.6 g/dL (6.3-8.2)
[2016-10-01 18:34] LABS: URINE BARBITURATES SCREEN NEGATIVE; URINE METHADONE SCREEN NEGATIVE; URINE OPIATES LOW NEGATIVE; URINE PHENCYCLIDINE SCREEN NEGATIVE
[2016-10-01] MEDS ORDERED: DIAZEPAM 5 MG TABLET PO ONE (19:15)
[2016-10-01 19:54] VITALS: BP 139/82
--- NOTE | 2016-10-01 21:40 | EKG REPORT ---
SEVERITY:- OTHERWISE NORMAL ECG - SINUS TACHYCARDIA : Confirmed by: Matt Torres 01-Oct-2016 21:39:24
== END 2016-10-01 19:54 | disposition home or self-care (01) ==
LOC: ER 17:17
DX: R07.9 Chest pain, unspecified (principal); M62.838 Other muscle spasm; M62.830 Muscle spasm of back; M54.2 Cervicalgia; M79.601 Pain in right arm; M25.511 Pain in right shoulder; M79.604 Pain in right leg; R00.0 Tachycardia, unspecified; F17.200 Nicotine dependence, unspecified, uncomplicated
CPT/HCPCS: 36415; 71020; 80053; 80307; 81001; 82550; 83735; 84702; 85025; 85379; 93005; 93010; 99285

== ENCOUNTER 2017-06-19 03:57 | Emergency (ER) | payer SELFPAY ==
[2017-06-19 06:17] LABS: APPEARANCE,URINE SLIGHTLY-CLOUDY; BILIRUBIN,URINE NEGATIVE (NEGATIVE); COLOR,URINE YELLOW; GLUCOSE, URINE >=500 mg/dL (NEGATIVE); KETONES,URINE NEGATIVE (NEGATIVE); LEUKOCYTE ESTERASE,URINE SMALL (NEGATIVE); NITRITE,URINE NEGATIVE (NEGATIVE); PROTEIN,URINE 30 mg/dL (NEGATIVE); URINE SPECIFIC GRAVITY 1.025; UROBILINOGEN,URINE NEGATIVE mg/dL (<2.0)
--- NOTE | 2017-06-19 06:21 | ER Document Report ---
ED GI/ - General Chief Complaint: Abdominal Pain Stated Complaint: ABDOMINAL PAIN Time Seen by Provider: 06/19/17 06:06 Notes: Patient is a 31-year-old female who presents with 2 days of pelvic pain and a burning sensation when she urinates. There are no concerns for STD at this time. She denies vaginal bleeding, flank pain, nausea, vomiting, diarrhea, constipation, fevers, chest pain, shortness of breath or hematuria. TRAVEL OUTSIDE OF THE [place] IN LAST 30 DAYS: No - Related Data Allergies/Adverse Reactions: Sulfa (Sulfonamide Antibiotics) Allergy (Verified 06/19/17 05:45) Past Medical History - General Information source: Patient - Social History Smoking Status: Current Every Day Smoker Family History: Reviewed & Not Pertinent Renal/ Medical History: Reports: Hx Kidney Stones. Denies: Hx Peritoneal Dialysis Past Surgical History: Reports: Hx Section, Hx Tubal Ligation - Immunizations Hx Diphtheria, Pertussis, Tetanus Vaccination: No Review of Systems - Review of Systems Notes: REVIEW OF SYSTEMS: CONSTITUTIONAL: -fevers, -chills EENT: -eye pain, -difficulty swallowing, -nasal congestion CARDIOVASCULAR: -chest pain, -syncope. RESPIRATORY: -cough, -SOB GASTROINTESTINAL: +lower abdominal pain, -nausea, -vomiting, -diarrhea GENITOURINARY: +dysuria, -hematuria MUSCULOSKELETAL: -back pain, -neck pain SKIN: -rash or skin lesions. HEMATOLOGIC: -easy bruising or bleeding. LYMPHATIC: -swollen, enlarged glands. NEUROLOGICAL: -altered mental status or loss of consciousness, -headache, - neurologic symptoms PSYCHIATRIC: -anxiety, -depression. ALL OTHER SYSTEMS REVIEWED AND NEGATIVE. Physical Exam - Vital signs Vitals: Temp Pulse Resp BP Pulse Ox 98.5 F 116 H 16 150/96 H 96 06/19/17 04:29 06/19/17 04:29 06/19/17 04:29 06/19/17 04:29 06/19/17 04:29 - Notes Notes: PHYSICAL EXAMINATION: GENERAL: Uncomfortable. HEAD: Atraumatic, normocephalic. EYES: Pupils equal round and reactive to light, extraocular movements intact, sclera anicteric, conjunctiva are normal. ENT: nares patent, oropharynx clear without exudates. Moist mucous membranes. NECK: Normal range of motion, supple without lymphadenopathy LUNGS: Breath sounds clear to auscultation bilaterally and equal. No wheezes rales or rhonchi. HEART: Tachycardia, regular rhythm. ABDOMEN: Soft, nontender, normoactive bowel sounds. No guarding, no rebound. No masses appreciated. : (Chaperoned by Maddison RN) Multiple tender ulcerated lesions in vaginal vault. Small amount of yellow discharge. Non-tender uterus and adnexal region. EXTREMITIES: Normal range of motion, no pitting or edema. No cyanosis. NEUROLOGICAL: Cranial nerves grossly intact. Normal speech, normal gait. Normal sensory and motor exams. PSYCH: Normal mood, mildly anxious. SKIN: Warm, Dry, normal turgor, no rashes or lesions noted. Course - Re-evaluation Re-evalutation: With multiple painful lesions in the vagina, there is concern for herpes. Patient says she has not had a new partner in 3 years and has never had lesions in the past. Instructed her to begin antivirals, lidocaine gel for pain, Keflex for possible early urinary tract infection and follow-up at the health department or [facility] for further evaluation and testing. Gonorrhea and Chlamydia test are pending upon discharge but will call patient at provided number if they are positive. She will use condoms and let her partner know about the results and need for testing. - Vital Signs Vital signs: Temp Pulse Resp BP Pulse Ox 98.5 F 116 H 16 150/96 H 96 06/19/17 04:29 06/19/17 04:29 06/19/17 04:29 06/19/17 04:29 06/19/17 04:29 - Laboratory Laboratory results interpreted by me: 06/19/17 05:38 Urine Protein 30 H Urine Glucose (UA) >=500 H Urine Blood SMALL H Ur Leukocyte Esterase SMALL H Discharge - Discharge Clinical Impression: Dysuria, Skin ulcer of multiple sites of vulva UTI (urinary tract infection) Qualifiers: Urinary tract infection type: acute cystitis Hematuria presence: without hematuria Qualified Code(s): N30.00 - Acute cystitis without hematuria Condition: Stable Disposition: HOME, SELF-CARE Additional Instructions: Take the acyclovir and Keflex as directed.You may use warm baths or lidocaine gel to help with any pain. Follow-up with the Health Department or [facility] [employer] for further evaluation and treatment. Use condoms. URINARY TRACT INFECTION: Your evaluation indicates that you have a urinary tract infection. This is due to germs growing in the bladder. This is a common problem. This infection usually responds quickly to antibiotics. Your antibiotic should be taken exactly as prescribed. Drink plenty of fluids -- three to four quarts a day. Occasionally, a bladder anesthetic will be prescribed to help stop the feeling of urgency until the antibiotic has a chance to clear the infection. This may cause your urine to be dark orange. Certain urine infections require a culture. If the doctor obtained a culture, the results will be back in two days. You should call to see if a change in treatment is needed. A repeat urinalysis after you finish treatment is often recommended. The physician will let you know if further testing is required. Call the doctor if you develop fever, chills, flank pain, inability to urinate, or blood in the urine. ANTIBIOTIC THERAPY: You have been given an antibiotic prescription. It's important that you take all the medication, unless instructed otherwise by your physician. Failure to complete the entire course can result in relapse of your condition. Common side effects of antibiotics include nausea, intestinal cramping, or diarrhea. Women may develop vaginal yeast infections, and babies can get yeast (thrush) in the mouth following the use of antibiotics. Contact your physician if you develop significant side effects from this medication. Allergy to this antibiotic can result in hives, wheezing, faintness, or itching. If symptoms of allergy occur, stop the medication and call the doctor. NITROFURANTOIN (MACRODANTIN, MACROBID): You have received a prescription for nitrofurantoin (Macrodantin). This antibiotic is used for urinary tract infections. Women who are or nursing should notify the physician before taking this medicine. If you have ever had a problem caused by this medication in the past, be sure the physician is aware of it. Common side effects of this medicine include nausea, vomiting, or decreased appetite. Notify your physician if these side effects become severe. Immediately stop this medicine and call the physician if you develop cough , shortness of breath, chest pain, weakness, jaundice (yellow color of the skin and whites of the eyes), or a skin rash. URINARY ANESTHETIC AGENT: You have been given a medication (Pyridium) for urinary tract discomfort. This medicine numbs the lining of the bladder and urethra, resulting in less pain, burning, and urgency. You may take it as needed, according to instructions. When the symptoms resolve, you can stop this medication (be sure to continue any other medications the doctor has given you). This medicine turns the urine a dark orange. It may stain underwear. Occasionally, it can cause nausea. Return for evaluation if there are any unexpected effects, such as itching, hives, or shortness of breath. FOLLOW-UP CARE: If you have been referred to a physician for follow-up care, call the physician s office for an appointment as you were instructed or within the next two days. If you experience worsening or a significant change in your symptoms, notify the physician immediately or return to the Emergency Department at any time for re-evaluation. Herpes Simplex You have been diagnosed as having a herpes virus infection. The herpes ( "cold sore") virus usually infects the areas around the mouth. However, it can cause infection on any skin surface. It's particularly dangerous if infection occurs in the eye. On the initial infection, herpes blisters erupt over a large area. There is usually fever and aching. This infection takes about 14 days to resolve. After the initial infection, herpes sores can erupt on small areas (usually the lips), then heal in about a week. Sunburn, fever, local irritation, or even emotions can provoke a "fever blister" attack of herpes. Initial herpes infections can be treated with medication if severe. Subsequent attacks are usually given only local care to reduce symptoms; however , the physician may decide to prescribe anti-viral medication if your case warrants it. Call the doctor if you are worsening in any way. Prescriptions: Acyclovir [Acyclovir 400 mg Tablet] 400 mg PO 5XD 10 Days tablet Cephalexin Monohydrate [Keflex 500 mg Capsule] 500 mg PO BID 7 Days capsule Lidocaine HCl [Xylocaine 2% Jelly 30 ml Tube] 30 ml MM DAILYP PRN #1 tube PRN Reason: Forms: Elevated Blood Pressure Referrals: [facility] [Provider Group] - Follow up as needed
[2017-06-19] MEDS ORDERED: LIDOCAINE 2% JELLY 5 ML TUBE TOP ONE (07:04)
[2017-06-19] MEDS ORDERED: CEPHALEXIN 500 MG CAPSULE PO ONE (07:05)
[2017-06-19] MEDS ORDERED: ACYCLOVIR 800 MG TABLET PO ONE (07:11)
[2017-06-19] MEDS ORDERED: ACYCLOVIR 200 MG CAPSULE PO ONE (07:14)
[2017-06-19 07:21] LABS: T.VAGINALIS (WET MOUNT) NO TRICHOMONAS SEEN; YEAST (WET MOUNT) NO YEAST SEEN
[2017-06-19 07:22] LABS: RBCS (WET MOUNT) RARE RBCS SEEN; WBCS (WET MOUNT) FEW WBCS SEEN
[2017-06-19 07:48] VITALS: BP 161/86
[2017-06-19 08:44] LABS: CHLAM PCR NOT DETECTED (NOT DETECT); GON PCR NOT DETECTED (NOT DETECT)
== END 2017-06-19 07:49 | disposition home or self-care (01) ==
LOC: ER 03:57
DX: N30.00 Acute cystitis without hematuria (principal); L98.9 Disorder of the skin and subcutaneous tissue, unspecified; R10.2 Pelvic and perineal pain; R10.9 Unspecified abdominal pain; F17.200 Nicotine dependence, unspecified, uncomplicated; Z88.2 Allergy status to sulfonamides; Z87.442 Personal history of urinary calculi; Z98.51 Tubal ligation status
CPT/HCPCS: 81001; 81025; 87210; 87491; 87591; 99284

== ENCOUNTER 2017-10-28 14:09 | Emergency (ER) | payer SELFPAY ==
[2017-10-28] MEDS ORDERED: ACETAMINOPHEN 325 MG TABLET PO ONE (14:59)
[2017-10-28] MEDS ORDERED: IBUPROFEN 400 MG TABLET PO ONE (15:00)
--- NOTE | 2017-10-28 15:00 | ER Document Report ---
HPI - HPI Pain Level: 5 Past Medical History - Social History Family History: Reviewed & Not Pertinent Renal/ Medical History: Reports: Hx Kidney Stones. Denies: Hx Peritoneal Dialysis Past Surgical History: Reports: Hx Section, Hx Tubal Ligation - Immunizations Hx Diphtheria, Pertussis, Tetanus Vaccination: No Vertical Provider Document - INFECTION CONTROL TRAVEL OUTSIDE OF THE [place] IN LAST 30 DAYS: No Course - Vital Signs Vital signs: Temp Pulse Resp BP Pulse Ox 98.7 F 119 H 20 124/74 100 10/28/17 14:16 10/28/17 14:16 10/28/17 14:16 10/28/17 14:16 10/28/17 14:16 Discharge - Discharge Clinical Impression: Left buttock abscess Condition: Good Disposition: HOME, SELF-CARE Instructions: Abscess ([facility]), Post Incision and Drainage, Clindamycin ([facility]) Additional Instructions: Warm compress No work until you are rechecked Recheck the wound in 48 hours, return sooner if worse Tylenol and Motrin for pain Clindamycin for antibiotics Prescriptions: Ibuprofen [Motrin 400 mg Tablet] 400 mg PO Q6HP PRN #30 tablet PRN Reason: Clindamycin HCl [Cleocin 150 mg Capsule] 300 mg PO QID #60 capsule
[2017-10-28] MEDS ORDERED: CLINDAMYCIN HCL 150 MG CAPSULE PO ONE (15:01)
[2017-10-28] MEDS ORDERED: ONDANSETRON 4 MG TAB.RAPDIS PO ONE ×2 (15:01→15:24)
[2017-10-28] MEDS ORDERED: LIDOCAINE 4%/TETRACAINE 0.5%/EPI 0.18% 5 ML TOPICAL SOLN TOP ONE (15:08)
[2017-10-28] MEDS ORDERED: NORMAL SALINE 1000 ML 1,000 ML IV ONE (15:23)
[2017-10-28] MEDS ORDERED: MORPHINE SULFATE 10 MG/ML INJ IV ONE ×2 (15:24→16:38)
--- NOTE | 2017-10-28 15:27 | ER Document Report ---
ED Medical Screen (RME) - General Chief Complaint: Abscess Stated Complaint: POSSIBLE ABSCESS Time Seen by Provider: 10/28/17 14:58 Mode of Arrival: Ambulatory Information source: Patient Notes: 32-year-old female with sudden onset of a large abscess in the middle of her left buttocks. She felt a pimple yesterday and it is about 3 cm today. History of diabetes but when I looked back in her chart she has had elevated glucoses over 200. The glucose today is 371. I consulted with several hours who wants to give her IV fluid and start her on antidiabetic so lab work has been ordered and she will be placed in a non-super track bed. I discussed the care with Joan Cortes nurse practitioner who will complete the patient 's care TRAVEL OUTSIDE OF THE [place] IN LAST 30 DAYS: No - Related Data Allergies/Adverse Reactions: Sulfa (Sulfonamide Antibiotics) Allergy (Verified 10/28/17 14:11) Past Medical History Renal/ Medical History: Reports: Hx Kidney Stones. Denies: Hx Peritoneal Dialysis Past Surgical History: Reports: Hx Section, Hx Tubal Ligation - Immunizations Hx Diphtheria, Pertussis, Tetanus Vaccination: No History of Influenza Vaccine for 01/2017 - 06/2017 Season: Yes Physical Exam - Vital signs Vitals: Temp Pulse Resp BP Pulse Ox 98.7 F 119 H 20 124/74 100 10/28/17 14:16 10/28/17 14:16 10/28/17 14:16 10/28/17 14:16 10/28/17 14:16 Course - Vital Signs Vital signs: Temp Pulse Resp BP Pulse Ox 98.7 F 119 H 20 124/74 100 10/28/17 14:16 10/28/17 14:16 10/28/17 14:16 10/28/17 14:16 10/28/17 14:16 Doctor's Discharge - Discharge Clinical Impression: Left buttock abscess Condition: Good Disposition: HOME, SELF-CARE Instructions: Abscess ([facility]), Clindamycin ([facility]), Post Incision and Drainage Additional Instructions: Warm compress No work until you are rechecked Recheck the wound in 48 hours, return sooner if worse Tylenol and Motrin for pain Clindamycin for antibiotics Prescriptions: Ibuprofen [Motrin 400 mg Tablet] 400 mg PO Q6HP PRN #30 tablet PRN Reason: Clindamycin HCl [Cleocin 150 mg Capsule] 300 mg PO QID #60 capsule
[2017-10-28] MEDS ORDERED: METFORMIN HCL 500 MG TABLET PO ONE (15:51)
[2017-10-28] MEDS ORDERED: CLINDAMYCIN 600 MG/D5W RTU 600 MG/50 ML RTUPB IV ONE (16:00)
--- NOTE | 2017-10-28 16:03 | ER Document Report ---
ED Skin Rash/Insect Bite/Abscs - General Chief Complaint: Abscess Stated Complaint: POSSIBLE ABSCESS Time Seen by Provider: 10/28/17 14:58 Mode of Arrival: Ambulatory Information source: Patient Notes: 32-year-old female presented ED for complaint of a large abscess to her left buttocks. She states started with a pimple yesterday and then suddenly became of large abscess is now over 3 cm. She denies history of diabetes but when you look back over the chart there is several elevated sugars over 200 and today the sugar is 371. Meghan maharaj saw the patient first and consulted the on- call physician who stated that she needs to get some IV fluids before being discharged. I have started an IV on her and drawn her labs and the nurses will start her pain medicine and nausea medicine. I will get the I&D completed and then IV antibiotics will be started. TRAVEL OUTSIDE OF THE [place] IN LAST 30 DAYS: No - HPI Patient complains to provider of: Tender/swollen area Onset: Just prior to arrival Onset/Duration: Gradual Quality of pain: Sharp, Throbbing Severity: Severe Pain Level: 5 Skin Character: Abscess Skin Temperature: Warm Quality of rash: Painful Identify cause: No Exacerbated by: Sitting, Standing, Movement Relieved by: Denies Similar symptoms previously: No Recently seen / treated by doctor: No - Related Data Allergies/Adverse Reactions: Sulfa (Sulfonamide Antibiotics) Allergy (Verified 10/28/17 14:11) Past Medical History - General Information source: Patient - Social History Smoking Status: Current Every Day Smoker Cigarette use (# per day): Yes - One half pack per day Chew tobacco use (# tins/day): No Smoking Education Provided: Yes - 4 minutes Frequency of alcohol use: Social - 2 times a week last night she had a lot of wine Drug Abuse: None Occupation: [employer] sales Lives with: Family Family History: Reviewed & Not Pertinent - Past Medical History Cardiac Medical History: Reports: None Pulmonary Medical History: Reports: None EENT Medical History: Reports: None Neurological Medical History: Reports: None Endocrine Medical History: Reports: Hx Diabetes Mellitus Type 2 Renal/ Medical History: Reports: Hx Kidney Stones Malignancy Medical History: Reports: None GI Medical History: Reports: None Musculoskeletal Medical History: Reports None Skin Medical History: Reports None Psychiatric Medical History: Reports: None Traumatic Medical History: Reports: None Infectious Medical History: Reports: None Past Surgical History: Reports: Hx Section, Hx Tubal Ligation - Immunizations Immunizations up to date: Yes Hx Diphtheria, Pertussis, Tetanus Vaccination: Yes - 10/28/17 Review of Systems - Review of Systems Constitutional: No symptoms reported EENT: No symptoms reported Cardiovascular: No symptoms reported Respiratory: No symptoms reported Gastrointestinal: No symptoms reported Genitourinary: No symptoms reported Female Genitourinary: No symptoms reported Musculoskeletal: No symptoms reported Skin: Other - Left buttocks abscess Hematologic/Lymphatic: No symptoms reported Neurological/Psychological: No symptoms reported -: Yes All other systems reviewed and negative Physical Exam - Vital signs Vitals: Temp Pulse Resp BP Pulse Ox 98.7 F 119 H 20 124/74 100 10/28/17 14:16 10/28/17 14:16 10/28/17 14:16 10/28/17 14:16 10/28/17 14:16 Interpretation: Normal - General General appearance: Appears well, Alert - HEENT Head: Normocephalic, Atraumatic Eyes: Normal Pupils: PERRL - Respiratory Respiratory status: No respiratory distress Chest status: Nontender Breath sounds: Normal Chest palpation: Normal - Cardiovascular Rhythm: Regular Heart sounds: Normal auscultation Murmur: No - Abdominal Inspection: Normal Distension: No distension Bowel sounds: Normal Tenderness: Nontender Organomegaly: No organomegaly - Back Back: Normal, Nontender - Extremities General upper extremity: Normal inspection, Nontender, Normal color, Normal ROM , Normal temperature General lower extremity: Normal inspection, Nontender, Normal color, Normal ROM , Normal temperature, Normal weight bearing. No: Adeola's sign - Neurological Neuro grossly intact: Yes Cognition: Normal Orientation: AAOx4 Rosemarie Coma Scale Eye Opening: Spontaneous Rosemarie Coma Scale Verbal: Oriented [place] Coma Scale Motor: Obeys Commands Rosemarie Coma Scale Total: 15 Speech: Normal Motor strength normal: LUE, RUE, LLE, RLE Sensory: Normal - Psychological Associated symptoms: Normal affect, Normal mood - Skin Skin Temperature: Warm Skin Moisture: Dry Skin Color: Normal Skin irregularity: Abscess Location of irregularity: Other Irregularity with: Swelling - Left buttocks, Tenderness, Warmth Course - Re-evaluation Re-evalutation: 10/28/17 18:57 Patient had an IUD completed. She then had her abscess packed with iodoform. She was treated with clindamycin IV in the emergency room and discharged home with prescription for 300 mg 6 hours. She was sent home with a prescription and a coupon from [employer]. I forgot to give the prescription for the Metformin and I called in to [facility] [address] [place] [id number]. She is to get Metformin 500 mg tonight 500 mg tomorrow in the morning and at night and then 1000 mg a day for 30 day supply. I spoke with the pharmacist and they stated they would have this filled. Patient stated she was on her way to [facility] on [address] [place] [id number] for her clindamycin. - Vital Signs Vital signs: Temp Pulse Resp BP Pulse Ox 98.0 F 100 18 107/52 L 94 10/28/17 18:30 10/28/17 18:30 10/28/17 18:30 10/28/17 18:30 10/28/17 18:30 - Laboratory Result Diagrams: 10/28/17 16:01 10/28/17 16:01 Laboratory results interpreted by me: 10/28/17 10/28/17 10/28/17 15:16 16:01 16:01 Hgb 10.7 L Hct 33.6 L MCV 73 L MCH 23.4 L RDW 20.6 H Seg Neutrophils % 81.9 H Lymphocytes % 9.5 L Absolute Neutrophils 8.3 H Glucose 324 H POC Glucose 371 H Procedures - Incision and Drainage Left Buttock Time completed: 17:06 Type: Simple Anesthetic type: 1% Lidocaine mL's of anesthetic: 10 Blade size: 11 I&D procedure: Shurclens applied, Iodoform packing placed Incision Method: Incision made by scalpel Amount/type of drainage: copious amount purulent drainage Discharge - Discharge Clinical Impression: Left buttock abscess Condition: Good Disposition: HOME, SELF-CARE Instructions: Abscess ([facility]), Clindamycin ([facility]), Post Incision and Drainage Additional Instructions: ABSCESS: You have an abscess (boil). This a pus-forming infection, usually due to staph. Some boils may be left to drain on their own, but most require lancing. From the time the tender lump first appears, it may be three or four days before the abscess is ready to johanna. Local heat and rest help at this stage of treatment. An antibiotic may prevent spread of the infection. Once the abscess is opened, packing may be placed into it. This is done so pus is not sealed inside by premature closure of the cavity. The packing will be removed at your follow-up visit or you may be advised to remove it yourself at home. Sometimes this packing must be replaced a few times during healing. The wound will heal with surprisingly little scar. Depending on the size and location of an abscess, healing can take one to four weeks. You may shower and wash the area around the incision site two or three times a day. Antibiotics may be prescribed, but are usually not necessary after an abscess has been drained. If you develop fever, chills, worsening pain, or increasing swelling in the area, call the doctor or return immediately. POST INCISION AND DRAINAGE: You have had an incision made to allow drainage of an abscess. The incision must remain open so that pus and debris can drain from the wound. If the abscess cavity is large, packing is placed. This keeps the tissues from collapsing and trapping pus inside, while the body shrinks the cavity. The packing may need to be replaced every day or two. The physician will instruct you on the packing. Keep a bulky dressing over the area. Replace it if it becomes saturated with blood or pus. Do not disturb the packing (if present). You may shower and cleanse the area with gentle soap and warm water two or three times a day. Local warmth may be soothing, and may promote faster healing. Return if you develop high fever or chills, or if you note spreading redness, increasing swelling, or increasing tenderness. Clindamycin You have been given a prescription for the antibiotic clindamycin. It is often prescribed for infections in the mouth, such as dental infections or abscesses, and for skin infections due to MRSA. It's important that you take all the medication, unless instructed otherwise by your physician. Failure to complete the entire course can result in relapse of your condition. Common side effects of antibiotics include nausea, intestinal cramping, or diarrhea. Women may develop vaginal yeast infections, and babies can get yeast (thrush) in the mouth following the use of antibiotics. Contact your physician if you develop significant side effects from this medication. Allergy to this antibiotic can result in hives, wheezing, faintness, or itching. If symptoms of allergy occur, stop the medication and call the doctor. Return to ED in 48 hours to have your abscess reassessed and packing removed. FOLLOW-UP CARE: Most simple abscesses will not require a follow up visit. If you had packing placed in the abscess, remove it as instructed by the physician. If you have been referred to a physician for follow-up care, call the physicians office for an appointment as you were instructed or within the next two days. If you experience worsening or a significant change in your symptoms, return to the Emergency Department at any time for re-evaluation. Prescriptions: Clindamycin HCl 300 mg PO Q6 #28 capsule Forms: Smoking Cessation Education, Return to Work Referrals: [facility] [Provider Group] - Follow up as needed [facility] [Provider Group] - Follow up as needed
[2017-10-28] MEDS ORDERED: DIPH/PERTUSS(ACELL)/TETANUS VAC/PF 0.5 ML SYR (>=10YO) IM ONE (16:06)
[2017-10-28 16:15] LABS: ABSOLUTE BASOPHILS # (AUTO) 0.1 10^3/uL (0.0-0.2); ABSOLUTE MONOCYTES (AUTO) 0.8 10^3/uL (0.1-1.4); ABSOLUTE NEUT (AUTO) 8.3 10^3/uL (1.7-8.2); BASOPHILS % (AUTO) 0.6 % (0-2); EOSINOPHILS % (AUTO) 0.4 % (0-6); HEMATOCRIT 33.6 % (36.0-47.0); HEMOGLOBIN 10.7 g/dL (12.0-15.5); LYMPHOCYTES % (AUTO) 9.5 % (13-45); MEAN CORPUSCULAR HEMOGLOBIN 23.4 pg (27.0-33.4); MEAN CORPUSCULAR VOLUME 73 fl (80-97); MONOCYTES % (AUTO) 7.6 % (3-13); PLATELET COUNT 250 10^3/uL (150-450); RED CELL DISTRIBUTION WIDTH 20.6 % (11.5-14.0); SEGMENTED NEUTROPHILS % (AUTO) 81.9 % (42-78); TOTAL CELLS COUNTED % (AUTO) 100 %; WHITE BLOOD COUNT 10.2 10^3/uL (4.0-10.5)
[2017-10-28 16:39] LABS: ALANINE AMINOTRANSFERASE 18 U/L (9-52); ALBUMIN 3.6 g/dL (3.5-5.0); ALKALINE PHOSPHATASE 112 U/L (38-126); ANION GAP 12 (5-19); ASPARTATE AMINO TRANSFERASE 16 U/L (14-36); BILIRUBIN,DIRECT 0.3 mg/dL (0.0-0.4); BILIRUBIN,TOTAL 0.4 mg/dL (0.2-1.3); BLOOD UREA NITROGEN 14 mg/dL (7-20); CALCIUM 9.7 mg/dL (8.4-10.2); CARBON DIOXIDE 26 mmol/L (22-30); CHLORIDE 103 mmol/L (98-107); GLUCOSE 324 mg/dL (75-110); POTASSIUM 4.2 mmol/L (3.6-5.0); SODIUM 141.3 mmol/L (137-145); TOTAL PROTEIN 6.6 g/dL (6.3-8.2)
[2017-10-28] MEDS ORDERED: MORPHINE SULFATE 10 MG/ML INJ ONE (16:39)
[2017-10-28] MEDS ORDERED: LIDOCAINE 1% INJ-PF (10 MG/ML) 30 ML SDV INJ ONE (16:39)
[2017-10-28 18:48] VITALS: BP 107/52
== END 2017-10-28 18:24 | disposition home or self-care (01) ==
LOC: ER 14:09
PROC: 0H98XZZ Drainage of Buttock Skin, External Approach (ICD-10-PCS; principal; 2017-10-28)
DX: L02.31 Cutaneous abscess of buttock (principal); F17.210 Nicotine dependence, cigarettes, uncomplicated; E11.9 Type 2 diabetes mellitus without complications; Z88.2 Allergy status to sulfonamides; Z23 Encounter for immunization; Z98.51 Tubal ligation status; Z79.4 Long term (current) use of insulin
CPT/HCPCS: 99284; 90471; 96375; 96365; 36415; 87070; 87205; 82962; 85025; 87077; 80053; 90715; 10060; A6266; S0119; J3490 ×2; J2270; J7030

== ENCOUNTER 2017-10-30 10:31 | Emergency (ER) | payer SELFPAY ==
[2017-10-30 10:42] VITALS: BP 121/87
[2017-10-30] MEDS ORDERED: OXYCODONE-ACETAMINOPHEN 5-325 MG TABLET PO ONE (10:59)
--- NOTE | 2017-10-30 11:04 | ER Document Report ---
HPI - HPI Patient complains to provider of: abscess recheck Onset: Yesterday Quality of pain: Achy Severity: Severe Pain Level: 5 Context: Patient presents to emergency department for an abscess recheck on her left buttocks. Patient had an I&D done yesterday was treated with antibiotics. Patient presents today to have the packing removed. [id number] bedside reports that she cleaned the area today, changed the dressing. She reports severe pain. Reports she is unable to sit and it hurts when she lifts her leg to step into the truck. She denies fever vomiting diarrhea. Patient is complaining because she was overdoing only given Motrin for pain and needs something stronger. Associated Symptoms: None. denies: Fever Exacerbated by: Sitting Relieved by: Denies Similar symptoms previously: Yes Recently seen / treated by doctor: Yes Past Medical History - General Information source: Patient - Social History Smoking Status: Current Every Day Smoker Cigarette use (# per day): Yes Frequency of alcohol use: Social Drug Abuse: None Occupation: [employer] Lives with: Family Family History: Reviewed & Not Pertinent Patient has suicidal ideation: No Patient has homicidal ideation: No - Medical History Medical History: Other - lupus Endocrine Medical History: Reports: Hx Diabetes Mellitus Type 2 Renal/ Medical History: Reports: Hx Kidney Stones. Denies: Hx Peritoneal Dialysis Past Surgical History: Reports: Hx Section, Hx Tubal Ligation - Immunizations Immunizations up to date: Yes Hx Diphtheria, Pertussis, Tetanus Vaccination: Yes - 10/28/17 Vertical Provider Document - CONSTITUTIONAL Agree With Documented VS: Yes Exam Limitations: No Limitations General Appearance: WD/WN, Mild Distress - Is very dramatic, patient yells out slightest touch on any part of her leg. - INFECTION CONTROL TRAVEL OUTSIDE OF THE [place] IN LAST 30 DAYS: No - HEENT HEENT: Atraumatic, Pharyngeal Erythema - NECK Neck: Normal Inspection, Supple - RESPIRATORY Respiratory: Breath Sounds Normal, No Respiratory Distress - CARDIOVASCULAR Cardiovascular: Regular Rate - BACK Back: Normal Inspection - MUSCULOSKELETAL/EXTREMETIES Musculoskeletal/Extremeties: BAKARI SHELTON - NEURO Level of Consciousness: Awake, Alert, Appropriate Motor/Sensory: No Motor Deficit - DERM Integumentary: Warm, Dry, Abscess Adult Front & Back Diagram: 1 - Packing removed. Area tender to palpate no discharge. No erythema no warmth, circular area of ecchymosis noted. Course - Re-evaluation Re-evalutation: 10/30/17 11:49 No obvious signs of infection. I feel her pain may be due to the way it was drained and the manipulation of squeezing the area. Patient is very dramatic. sister at the bedside was instructed on the importance of cleaning the area. I had her feel the site. She was also instructed on the importance of monitoring. The area was circled with a surgical surgical marker. Patient was instructed to return tomorrow for another recheck due to her history of diabetes and the way she was complaining of pain. The site was cleaned well by Shireen VÁZQUEZ. Bacitracin applied. Dressing applied. - Vital Signs Vital signs: Temp Pulse Resp BP Pulse Ox 99.1 F 98 18 121/87 H 100 10/30/17 10:40 10/30/17 10:40 10/30/17 10:40 10/30/17 10:40 10/30/17 10:40 Discharge - Discharge Clinical Impression: Abscess re-check Condition: Stable Disposition: HOME, SELF-CARE Instructions: Abscess (OM), Fluconazole (OM), Oral Narcotic Medication (OM) Additional Instructions: *You have been treated for an abscess recheck *Take medication as prescribed *Monitor the site for signs of increasing infection such as increasing pain, redness, swelling, warmth *Wash the site twice daily as discussed *Follow up here tomorrow for a recheck *Return to ED for signs of increasing infection, worsening condition, changes, needs Monitor your blood pressure. Your blood pressure was elevated today. This may be because you were anxious, in pain or because you need medication. It is important to follow up with your primary care provider for full evaluation. Prescriptions: Fluconazole [Diflucan 100 Mg Tablet] 100 mg PO DAILY #1 tablet Oxycodone HCl/Acetaminophen [Percocet 5-325 mg Tablet] 1 tab PO ASDIR PRN #15 tablet PRN Reason:
== END 2017-10-30 11:12 | disposition home or self-care (01) ==
LOC: ER 10:31
DX: L02.31 Cutaneous abscess of buttock (principal); Z48.01 Encounter for change or removal of surgical wound dressing; E11.9 Type 2 diabetes mellitus without complications; F17.210 Nicotine dependence, cigarettes, uncomplicated
CPT/HCPCS: 99282

== ENCOUNTER 2018-03-11 08:08 | Emergency (ER) | payer SELFPAY ==
[2018-03-11 09:03] LABS: APPEARANCE,URINE CLOUDY; BILIRUBIN,URINE NEGATIVE (NEGATIVE); COLOR,URINE YELLOW; GLUCOSE, URINE >=500 mg/dL (NEGATIVE); KETONES,URINE NEGATIVE (NEGATIVE); LEUKOCYTE ESTERASE,URINE LARGE (NEGATIVE); NITRITE,URINE NEGATIVE (NEGATIVE); PROTEIN,URINE 30 mg/dL (NEGATIVE); URIC ACID CRYSTALS,URINE RARE /HPF; URINE SPECIFIC GRAVITY 1.022; UROBILINOGEN,URINE NEGATIVE mg/dL (<2.0)
[2018-03-11] MEDS ORDERED: AZITHROMYCIN 250 MG TABLET PO ONE (09:54)
[2018-03-11] MEDS ORDERED: CEFTRIAXONE INJ 1000 MG VIAL IM ONE (09:54)
[2018-03-11] MEDS ORDERED: VALACYCLOVIR HCL 500 MG TABLET PO ONE (09:55)
--- NOTE | 2018-03-11 09:55 | ER Document Report ---
HPI - HPI Patient complains to provider of: Dysuria Time Seen by Provider: 03/11/18 08:47 Onset: Other - 2 days Pain Level: 3 Context: Patient presents complaining of dysuria and rash to perineum for the past 2 days. Patient states she is used Monistat [id number] without any improvement of her symptoms. Patient denies any fever. Patient denies any concern about any sexually transmitted infection. Associated Symptoms: Other - Skin rash, dysuria. denies: Fever, Nausea, Vomiting Exacerbated by: Denies Relieved by: Denies Similar symptoms previously: Yes Recently seen / treated by doctor: No - ROS ROS below otherwise negative: Yes Systems Reviewed and Negative: Yes All other systems reviewed and negative - CONSTITUTIONAL Constitutional: DENIES: Fever - EENT EENT: DENIES: Sore Throat - GASTROINTESTINAL Gastrointestinal: DENIES: Abdominal Pain, Nausea - URINARY Urinary: REPORTS: Dysuria - DERM Skin Color: Normal Skin Problems: Rash Past Medical History - General Information source: Patient - Social History Smoking Status: Unknown if Ever Smoked Frequency of alcohol use: None Drug Abuse: None Occupation: [employer] Family History: Reviewed & Not Pertinent Patient has suicidal ideation: No Patient has homicidal ideation: No Endocrine Medical History: Reports: Hx Diabetes Mellitus Type 2 Renal/ Medical History: Reports: Hx Kidney Stones. Denies: Hx Peritoneal Dialysis Past Surgical History: Reports: Hx Section, Hx Tubal Ligation - Immunizations Immunizations up to date: Yes Hx Diphtheria, Pertussis, Tetanus Vaccination: Yes - 10/28/17 Vertical Provider Document - CONSTITUTIONAL Agree With Documented VS: Yes Exam Limitations: No Limitations General Appearance: WD/WN, No Apparent Distress - INFECTION CONTROL TRAVEL OUTSIDE OF THE [place] IN LAST 30 DAYS: No - HEENT HEENT: Atraumatic, Normocephalic - NECK Neck: Normal Inspection, Supple - RESPIRATORY Respiratory: Breath Sounds Normal, No Respiratory Distress - CARDIOVASCULAR Cardiovascular: Regular Rate, Regular Rhythm - GI/ABDOMEN Gastrointestinal: Abdomen Soft, Abdomen Non-Tender - REPRODUCTIVE Female Genitalia: Abnormal Inspection. negative: Adnexal Pain-Right, Adnexal Pain-Left - BACK Back: Normal Inspection - MUSCULOSKELETAL/EXTREMETIES Musculoskeletal/Extremeties: MAEW, FROM - NEURO Level of Consciousness: Awake, Alert, Appropriate Motor/Sensory: No Motor Deficit - DERM Integumentary: Warm, Dry, Rash Course - Vital Signs Vital signs: Temp Pulse Resp BP Pulse Ox 98.6 F 94 20 147/82 H 98 03/11/18 08:11 03/11/18 08:11 03/11/18 08:11 03/11/18 08:11 03/11/18 08:11 - Laboratory Laboratory results interpreted by me: 03/11/18 08:33 Urine Protein 30 H Urine Glucose (UA) >=500 H Ur Leukocyte Esterase LARGE H Discharge - Discharge Clinical Impression: Bacterial vaginosis, rash to labia, Yeast dermatitis, Hidradenitis suppurativa UTI (urinary tract infection) Qualifiers: Urinary tract infection type: site unspecified Hematuria presence: without hematuria Qualified Code(s): N39.0 - Urinary tract infection, site not specified Condition: Stable Disposition: HOME, SELF-CARE Instructions: Cephalexin ([facility]), Genital Herpes ([facility]), Metronidazole ([facility]), Urinary Tract Infection ([facility]), Vaginosis, Bacterial ([facility]) Additional Instructions: Return immediately for any new or worsening symptoms Followup with your primary care provider, call tomorrow to make a followup appointment Prescriptions: Cephalexin Monohydrate [Keflex 500 mg Capsule] 500 mg PO Q6H 7 Days capsule Fluconazole [Diflucan] 150 mg PO ONCE PRN #1 tablet PRN Reason: Lidocaine HCl [Xylocaine 2% Jelly 30 ml Tube] 1 applic TOP TID PRN #30 ml PRN Reason: Metronidazole [Flagyl 500 mg Tablet] 500 mg PO BID #14 tablet Valacyclovir HCl [Valacyclovir] 1,000 mg PO BID #7 tablet Forms: Return to Work [facility] [NO [facility]AL MD] - Follow up as needed [facility] [Provider Group] - Follow up as needed [facility] [Provider Group] - Follow up as needed
[2018-03-11 10:08] LABS: BACTERIA (WET MOUNT) 3+ BACTERIA SEEN; EPITHELIALS (WET MOUNT) 3+ EPITHELIALS SEEN; RBCS (WET MOUNT) 1+ RBCS SEEN; T.VAGINALIS (WET MOUNT) NO TRICHOMONAS SEEN; WBCS (WET MOUNT) 2+ WBCS SEEN; YEAST (WET MOUNT) NO YEAST SEEN
[2018-03-11] MEDS ORDERED: METRONIDAZOLE 500 MG TABLET PO ONE (10:09)
[2018-03-11] MEDS ORDERED: LIDOCAINE 1% INJ-PF (10 MG/ML) 30 ML SDV INJ ONE (10:12)
[2018-03-11 10:36] VITALS: BP 133/79
[2018-03-11 11:40] LABS: CHLAM PCR NOT DETECTED (NOT DETECT); GON PCR NOT DETECTED (NOT DETECT)
== END 2018-03-11 10:48 | disposition home or self-care (01) ==
LOC: ER 08:08
DX: N76.0 Acute vaginitis (principal); B96.89 Other specified bacterial agents as the cause of diseases classified elsewhere; L73.2 Hidradenitis suppurativa; N39.0 Urinary tract infection, site not specified; B37.2 Candidiasis of skin and nail; R30.0 Dysuria; R21 Rash and other nonspecific skin eruption; E11.9 Type 2 diabetes mellitus without complications
CPT/HCPCS: 99283; 96372; 87210; 81025; 81001; 87250; 87491; 87591; J3490; J0696